=== PATIENT | female | born 1940 | race Two or more races ===

== ENCOUNTER 2023-08-05 17:02 | Emergency (ER) | payer OTHER ==
[~2023-08-05] VITALS: Ht 167.6 cm; Wt 81.6 kg
[2023-08-05] MEDS ORDERED: LIPITOR40 M1 PO (17:07)
[2023-08-05] MEDS ORDERED: TOPROL XL25 M1 PO (17:08)
[2023-08-05] MEDS ORDERED: ELIQUIS2.5 MG PO (17:08)
== END 2023-08-05 22:11 | disposition home or self-care (01) ==
LOC: ER 17:02
DX: M25.562 Pain in left knee (principal); M25.561 Pain in right knee